=== PATIENT | male | born 1955 | race Caucasian/White ===

== ENCOUNTER → 2017-11-03 | Outpatient (CLI) | payer OTHER | END | disposition home or self-care (01) | LOC: HKI 08:37 | DX: Z01.818 Encounter for other preprocedural examination (principal); M25.552 Pain in left hip | CPT/HCPCS: 73502 ==

== ENCOUNTER 2017-11-04 05:31 | Inpatient (IN) | payer OTHER ==
[2017-11-04] MEDS ORDERED: ONDANSETRON 4 MG INJ ×2 (06:19→08:18)
[2017-11-04] MEDS ORDERED: oxyCODONE (CR) 10 MG TAB [oxyCONTIN] PO (06:19)
[2017-11-04] MEDS ORDERED: CELECOXIB 200 MG CAP (06:20)
[2017-11-04] MEDS ORDERED: ACETAMINOPHEN 1000MG/100ML IV 100 ML (06:20)
[2017-11-04] MEDS ORDERED: VANCOMYCIN 1 GM (PMX) 250 ML (06:20)
[2017-11-04] MEDS ORDERED: DEXAMETHASONE 4 MG/ML 1 ML INJ ×2 (06:20→10:06)
[2017-11-04] MEDS ORDERED: LANSOPRAZOLE 30 MG CAP (06:20)
[2017-11-04] MEDS: ONDANSETRON 4 MG INJ IV ×5 (06:27→22:17)
[2017-11-04] MEDS: LANSOPRAZOLE 30 MG CAP PO (06:28)
[2017-11-04] MEDS: DEXAMETHASONE 4 MG/ML 1 ML INJ IV (06:28)
[2017-11-04] MEDS: CELECOXIB 200 MG CAP PO (06:28)
[2017-11-04] MEDS: oxyCODONE (CR) 10 MG TAB [oxyCONTIN] PO (06:29)
[2017-11-04] MEDS: ACETAMINOPHEN 1000MG/100ML IV 100 ML IVPB (06:29)
[2017-11-04] MEDS: VANCOMYCIN 1 GM (PMX) 250 ML IVPB ×2 (06:30→18:20)
[2017-11-04] MEDS: SOD CHLORIDE 0.9% 50 ML, TRANEXAMIC ACID 1,000 MG IRR (06:30)
[2017-11-04] MEDS ORDERED: EPHEDrine SULFATE 50 MG/5 ML SYG (07:00)
[2017-11-04] MEDS ORDERED: FENTAnyl 50 MCG/ML VIAL (07:28)
[2017-11-04] MEDS ORDERED: morphine SULFATE/PF (10 MG/10 ML) INJ (07:28)
[2017-11-04] MEDS ORDERED: MIDAZOLAM 1 MG/ML 2 ML INJ (07:31)
[2017-11-04] MEDS: BACITRACIN 50000 UNITS INJ (07:35)
[2017-11-04] MEDS: POLYMYXIN B 500000 UNIT INJ (07:37)
[2017-11-04] MEDS ORDERED: PHENYLephrine (100 MCG/ML) 5ML SYG ×2 (07:41→09:12)
[2017-11-04] MEDS: POLYMYXIN/BACITRACIN 1L IRRIG (08:10)
[2017-11-04] MEDS ORDERED: FAMOTIDINE 20 MG INJ (08:18)
[2017-11-04] MEDS: TRANEXAMIC ACID 1,000 MG in DEXTROSE 5% 100 ML IVPB (08:21)
[2017-11-04] MEDS ORDERED: PROPOFOL 20 ML (08:24)
[2017-11-04] MEDS ORDERED: ROCURONIUM 50 MG INJ ×2 (08:24)
[2017-11-04] MEDS ORDERED: LIDOCAINE 2% (SDV) 5 ML INJ (08:24)
[2017-11-04] MEDS ORDERED: ZOLPIDEM 5 MG TAB PO ×2 (09:30→10:30)
[2017-11-04] MEDS ORDERED: KETOROLAC 30 MG INJ IV (09:30)
[2017-11-04] MEDS ORDERED: DIPHENHYDRAMINE 50 MG INJ IV (09:30)
[2017-11-04] MEDS ORDERED: HYDROmorphONE 0.5 MG/0.5 ML SYG IV ×2 (09:30)
[2017-11-04] MEDS ORDERED: NALOXONE (0.4 MG/ML) INJ IV ×2 (09:30→10:30)
[2017-11-04] MEDS ORDERED: NALBUPHINE HCL (10 MG/1 ML) INJ IV (09:30)
[2017-11-04] MEDS ORDERED: ONDANSETRON 4 MG INJ IV (09:30)
[2017-11-04] MEDS: HIP PAIN COCKTAIL VANCO INJ (10:00)
[2017-11-04] MEDS ORDERED: ROPIVACAINE 0.2% 20 ML VIAL ×2 (10:06→10:08)
[2017-11-04] MEDS ORDERED: SUGAMMADEX SODIUM 200 MG/2 ML VIAL IV (10:12)
[2017-11-04] MEDS: SOD CHLORIDE 0.9% 1,000 ML IV ×2 (10:22→12:51)
[2017-11-04] MEDS ORDERED: NACL 0.9% 3 ML SYG IV (10:30)
[2017-11-04] MEDS ORDERED: BISACODYL 10 MG SUPP PR (10:30)
[2017-11-04] MEDS ORDERED: SENNA/DOCUSATE NA (8.6MG/50MG) TAB PO (10:30)
[2017-11-04] MEDS ORDERED: NA PHOSPHATE/BIPHOS 133 ML ENEMA PR (10:30)
[2017-11-04] MEDS ORDERED: oxyCODONE 5 MG TAB PO (10:30)
[2017-11-04] MEDS ORDERED: DIPHENHYDRAMINE 50 MG INJ IM (10:30)
[2017-11-04] MEDS ORDERED: traMADol 50 MG TAB PO (10:30)
[2017-11-04] MEDS ORDERED: MAGNESIUM HYDROXIDE 30ML CUP PO (10:30)
[2017-11-04] MEDS ORDERED: LABETALOL HCL 20MG INJ IV (11:00)
[2017-11-04] MEDS ORDERED: hydrALAzine 20 MG INJ IV ×2 (11:00)
[2017-11-04] MEDS: DOCUSATE SODIUM 100 MG CAP PO (11:08)
[2017-11-04] MEDS: ASPIRIN (EC) 325 MG TAB PO ×2 (11:09→22:17)
[2017-11-04] MEDS: DIPHENHYDRAMINE 50 MG INJ IV (11:14)
[2017-11-04] MEDS: BETHANECHOL 25 MG TAB PO (18:25)
[2017-11-04] MEDS: LACTATED RINGER'S 1,000 ML IV* (19:45)
[2017-11-04] MEDS: GABAPENTIN 100 MG CAP PO (22:17)
[2017-11-05] MEDS: VANCOMYCIN 1 GM (PMX) 250 ML IVPB (05:06)
[2017-11-05] MEDS: ONDANSETRON 4 MG INJ IV (05:06)
[2017-11-05] MEDS: PANTOPRAZOLE (EC) 40 MG TAB PO (05:07)
[2017-11-05] MEDS: DOCUSATE SODIUM 100 MG CAP PO (08:55)
[2017-11-05] MEDS: FERROUS FUMARATE (SR) TAB PO (08:56)
[2017-11-05] MEDS: CELECOXIB 200 MG CAP PO (08:56)
[2017-11-05] MEDS: ASPIRIN (EC) 325 MG TAB PO (08:56)
[2017-11-05] MEDS: GABAPENTIN 100 MG CAP PO (08:56)
[2017-11-05] MEDS: HYDROCODONE/APAP (5/325) TAB PO ×2 (08:56→13:50)
[2017-11-05 10:15] LABS: ADD MAN DIFF? NO
[2017-11-05 10:20] LABS: ABNORMAL IP MESSAGE 1; BASOPHILS % 0.1 % (0.0-2.0); EOSINOPHILS % 0.1 % (0.0-7.0); HEMATOCRIT 30.8 % (42.0-52.0); HEMOGLOBIN 10.6 g/dl (14.0-18.0); LYMPHOCYTES # 1.3 10^3/ul (0.8-2.9); LYMPHOCYTES % 7.8 % (15.0-51.0); MEAN CORPUSCULAR HEMOGLOBIN 31.2 pg (29.0-33.0); MEAN CORPUSCULAR HGB CONC 34.4 g/dl (32.0-37.0); MEAN CORPUSCULAR VOLUME 90.6 fl (82.0-101.0); MEAN PLATELET VOLUME 8.6 fl (7.4-10.4); MONOCYTE # 2.2 10^3/ul (0.3-0.9); NEUTROPHILS % 78.5 % (39.0-77.0); PLATELET COUNT 222 10^3/UL (140-415); POSITIVE DIFF @See below; RED CELL DISTRIBUTION WIDTH 14.2 % (11.5-14.5)
[2017-11-05 10:20] LABS: WHITE BLOOD COUNT 16.6 10^3/ul (4.8-10.8)
[2017-11-05 10:42] LABS: ANION GAP 12 (8-16); BLOOD UREA NITROGEN 15 mg/dl (7-20); CALCIUM 8.6 mg/dl (8.4-10.2); CARBON DIOXIDE 26 mmol/L (21-31); CHLORIDE 103 mmol/L (97-110); CREATININE 0.87 mg/dl (0.61-1.24); GLUCOSE 93 mg/dl (70-220); POTASSIUM 3.9 mmol/L (3.5-5.1); SODIUM 137 mmol/L (135-144)
[2017-11-05] MEDS: LISINOPRIL 10 MG TAB PO (12:25)
== END 2017-11-05 15:20 | disposition home health service (06) | DRG 470 ==
LOC: REC 05:31 → MS1 12:13
PROC: 0SRB04A Replacement of Left Hip Joint with Ceramic on Polyethylene Synthetic Substitute, Uncemented, Open Approach (ICD-10-PCS; principal; 2017-11-04 07:24)
DX: M16.12 Unilateral primary osteoarthritis, left hip (principal); I10 Essential (primary) hypertension
CPT/HCPCS: 72170; 73500; 73530; 80048; 85025; 86850; 86900; 86901; 86920; 87086; 88304; 88311; 97110; 97116; 97163; 97530

== ENCOUNTER → 2017-11-17 | Outpatient (CLI) | payer OTHER | END | disposition home or self-care (01) | LOC: HKI 09:47 | DX: Z09 Encounter for follow-up examination after completed treatment for conditions other than malignant neoplasm (principal); Z96.642 Presence of left artificial hip joint; Z88.0 Allergy status to penicillin | CPT/HCPCS: 73502 ==

== ENCOUNTER → 2017-12-15 | Outpatient (CLI) | payer OTHER | END | disposition home or self-care (01) | LOC: HKI 10:05 | DX: Z47.1 Aftercare following joint replacement surgery (principal); Z96.642 Presence of left artificial hip joint | CPT/HCPCS: 73502 ==

== ENCOUNTER → 2018-02-17 | Outpatient (CLI) | payer OTHER | END | disposition home or self-care (01) | LOC: HKI 14:02 | DX: Z09 Encounter for follow-up examination after completed treatment for conditions other than malignant neoplasm (principal); Z96.642 Presence of left artificial hip joint; Z88.0 Allergy status to penicillin | CPT/HCPCS: 73502 ==

== ENCOUNTER → 2018-05-11 | Outpatient (CLI) | payer OTHER | END | disposition home or self-care (01) | LOC: HKI 10:20 | DX: Z09 Encounter for follow-up examination after completed treatment for conditions other than malignant neoplasm (principal); Z96.642 Presence of left artificial hip joint | CPT/HCPCS: 73502 ==

== ENCOUNTER → 2018-11-10 | Outpatient (CLI) | payer OTHER | END | disposition home or self-care (01) | LOC: HKI 14:20 | DX: Z09 Encounter for follow-up examination after completed treatment for conditions other than malignant neoplasm (principal); Z96.642 Presence of left artificial hip joint | CPT/HCPCS: 73502 ==